=== PATIENT | male | born 1990 | race African-American/Black ===

== ENCOUNTER 2024-04-10 22:18 | Emergency (ER) | payer SELFPAY ==
[~2024-04-10] VITALS: Ht 182.9 cm; Wt 102.0 kg
[~2024-04-10 22:18] MED LIST: NO HOME MEDS; ZOFRAN4 MG/TAB PO
[2024-04-10 22:24] VITALS: BP 127/77
[2024-04-10 22:30] VITALS: BP 122/80
[2024-04-10] MEDS ORDERED: OXYMETAZOLINE HCL 15 ML/BTL SCH (22:46)
[2024-04-10] MEDS ORDERED: TETRACAINE HCL 0.5 %/4 ML SOL OU ONE (22:50)
[2024-04-10] MEDS ORDERED: FLUORESCEIN SODIUM 1 MG EA OU ONE (22:55)
[2024-04-10] MEDS ORDERED: Diph, Acellular Pertussis, Tet 0.5 ML/VIAL (Tdap) SDV IM ONE (22:55)
[2024-04-10 23:00] VITALS: BP 128/86
[2024-04-10] MEDS ORDERED: OXYCONTIN (23:00)
[2024-04-10] MEDS ORDERED: OXYMETAZOLINE HCL 15 ML/BTL ONE (23:00)
[2024-04-10] MEDS ORDERED: NEOMYCIN-BACITRACIN-POLYMYXIN 0.5 GM/PAK PAK TOP ONE (23:00)
[2024-04-10] MEDS ORDERED: IBUPROFEN 800 MG/TAB PO ONE (23:05)
[2024-04-10] MEDS ORDERED: SULFACET SOD10 % OD (23:32)
[2024-04-10] MEDS ORDERED: KEFLEX500 MG PO (23:32)
[2024-04-10 23:46] VITALS: BP 128/86
== END 2024-04-10 23:46 | disposition home or self-care (01) | DRG 125 ==
LOC: ED 22:18
DX: S05.01XA Injury of conjunctiva and corneal abrasion without foreign body, right eye, initial encounter (principal); S00.81XA Abrasion of other part of head, initial encounter; W37.8XXA Explosion and rupture of other pressurized tire, pipe or hose, initial encounter; Y92.524 Gas station as the place of occurrence of the external cause